=== PATIENT | female | born 1975 | race Caucasian/White ===

== ENCOUNTER 2024-02-13 16:54 | Emergency (ER) | payer MEDICAID ==
[~2024-02-13] VITALS: Ht 172.7 cm; Wt 100.0 kg
[2024-02-13 16:57] VITALS: TEMP 98; O2SAT 100
[2024-02-13 20:12] VITALS: BP 146/86; PULSE 100; RESP 16
[2024-02-13] MEDS: HYDROCODONE/ACETAMINOPHEN 5/325MG TABLET PO ONE (20:12)
[2024-02-13] MEDS: ONDANSETRON 4MG ODT PO ONE (20:12)
== END 2024-02-13 20:15 | disposition home or self-care (01) ==
LOC: ER 17:09
DX: S00.83XA Contusion of other part of head, initial encounter (principal); Y04.0XXA Assault by unarmed brawl or fight, initial encounter; Y93.89 Activity, other specified; Y92.89 Other specified places as the place of occurrence of the external cause; Y99.8 Other external cause status
CPT/HCPCS: 99284; 70450; 81025; 70486; Q0162